=== PATIENT | female | born 1975 | race African-American/Black ===

== ENCOUNTER 2018-09-24 11:59 | Emergency (ER) | payer BC ==
[2018-09-24 12:11] VITALS: TEMP 98.5; BMI 27.1
--- NOTE | 2018-09-24 13:00 | PDOC ---
History of Present Illness - General Chief Complaint: Diarrhea Stated Complaint: DIARRHEA Time Seen by Provider: 09/24/18 12:56 - History of Present Illness Initial Comments: 09/24/18 12:59 43 yo F with h/o HTN who p/w nausea w/out vomiting, and watery stools. Patient with acute onset of nausea w/out vomiting this AM, and 2 loose non-bloody, non- mucoid stools, with absent BPR. No abdominal pain, identifiable triggers or alleviators. Denies recent travels or sick contacts. Patient denies KENT, vision change, palpitations, cough, wheezing, orthopena, PND , leg swelling/pain, F,C, CP, SOB, urinary complaints, hematuria, BPR, abdominal pain, constipation, lightheadedness, weakness, sensory changes. PMHx: as noted above Surgical: Liposuction ROS: as noted SHx: Denies Etoh, IVDA, tobacco use Allergies: NKDA Past History - Past Medical History Allergies/Adverse Reactions: Allergies Allergy/AdvReac Type Severity Reaction Status Date / Time No Known Allergies Allergy Verified 09/24/18 12:07 Home Medications: Ambulatory Orders Hydrochlorothiazide 25 mg PO DAILY #30 tablet 07/22/16 Amlodipine Besylate [Norvasc -] 10 mg PO DAILY 09/24/18 COPD: No HTN: Yes Thyroid Disease: Yes (Hypo (no meds)) - Immunization History Td Vaccination: No TDAP Vaccination: No Immunization Up to Date: Yes - Suicide/Smoking/Psychosocial Hx Smoking Status: No Smoking History: Never smoked Have you smoked in the past 12 months: No Number of Cigarettes Smoked Daily: 0 If you are a former smoker, when did you quit?: 10 years ago Hx Alcohol Use: No Drug/Substance Use Hx: No Substance Use Type: None Hx Substance Use Treatment: No Review of Systems - Review of Systems Comments:: 09/24/18 12:59 GENERAL/CONSTITUTIONAL: No fever or chills. No weakness. HEAD, EYES, EARS, NOSE AND THROAT: No change in vision. No ear pain or discharge. No sore throat. CARDIOVASCULAR: No chest pain or shortness of breath RESPIRATORY: No cough, wheezing, or hemoptysis. GASTROINTESTINAL: + nausea, diarrhea No vomiting, constipation. GENITOURINARY: No dysuria, frequency, or change in urination. MUSCULOSKELETAL: No joint or muscle swelling or pain. No neck or back pain. SKIN: No rash NEUROLOGIC: No headache, vertigo, loss of consciousness, or change in strength/ sensation. ENDOCRINE: No increased thirst. No abnormal weight change HEMATOLOGIC/LYMPHATIC: No anemia, easy bleeding, or history of blood clots. ALLERGIC/IMMUNOLOGIC: No hives or skin allergy. *Physical Exam - Vital Signs Last Vital Signs Temp Pulse Resp BP Pulse Ox 98.5 F 91 H 20 147/85 99 09/24/18 12:07 09/24/18 12:07 09/24/18 12:07 09/24/18 12:07 09/24/18 12:07 - Physical Exam Comments: 09/24/18 12:59 GENERAL: Awake, alert, and fully oriented, in no acute distress HEAD: No signs of trauma, normocephalic, atraumatic EYES: PERRLA, EOMI, sclera anicteric, conjunctiva clear ENT: + Dry mucous membranes. Auricles normal inspection, hearing grossly normal , nares patent, oropharynx clear without exudates. NECK: Normal ROM, supple, no lymphadenopathy, JVD, or masses LUNGS: No distress, speaks full sentences, clear to auscultation bilaterally HEART: Regular rate and rhythm, normal S1 and S2, no murmurs, rubs or gallops, peripheral pulses normal and equal bilaterally. ABDOMEN: Soft, nontender, normoactive bowel sounds. No guarding, no rebound. No masses EXTREMITIES : Normal inspection, Normal range of motion, no edema. No clubbing or cyanosis. NEUROLOGICAL: Cranial nerves II through XII grossly intact. Normal speech, normal gait, no focal sensorimotor deficits SKIN: Warm, Dry, normal turgor, no rashes or lesions noted Moderate Sedation - Procedure Monitoring Vital Signs: Procedure Monitoring Vital Signs Temperature 98.5 F 09/24/18 12:07 Pulse Rate 91 H 09/24/18 12:07 Respiratory Rate 20 09/24/18 12:07 Blood Pressure 147/85 09/24/18 12:07 O2 Sat by Pulse Oximetry (%) 99 09/24/18 12:07 ED Treatment Course - LABORATORY CBC & Chemistry Diagram: 09/24/18 13:20 09/24/18 13:20 Medical Decision Making - Medical Decision Making 09/24/18 13:20 43 yo F with h/o HTN who p/w nausea w/out vomiting, and watery stools. Vitals wnl, AF, A&Ox3. Physical exam unremarkable. Will evaluate for gastroenteritis, gastritis, pancreatitis, biliary dz., , colitis. Will provide IVF resuscitation, and anti-emetic control. Ed Course: NS Sandra Montoya 09/24/18 15:47 CK: 2441 CMP: Unremarkable Trop: Neg 09/24/18 16:53 UA: Neg Patient stable for d/c with return precautions. *DC/Admit/Observation/Transfer Diagnosis at time of Disposition: Nausea Diarrhea Qualifiers: Diarrhea type: unspecified type Qualified Code(s): R19.7 - Diarrhea, unspecified - Referrals Referrals: Marilee Smith MD [Primary Care Provider] - - Patient Instructions Printed Discharge Instructions: DI for Diarrhea and Traveler's Diarrhea -- Adult Additional Instructions: Please return to the emergency department with any new or worsening symptoms or concerns. Please follow up with your primary care physician within 72 hours. - Post Discharge Activity - Attestations Physician Attestion: 09/24/18 12:59 I attest to the information provided in this note.
--- NOTE | 2018-09-24 13:06 | PDOC ---
Attending Attestation - Resident Resident Name: WilfridoAnatoliy - ED Attending Attestation I have performed the following: I have examined & evaluated the patient, The case was reviewed & discussed with the resident, I agree w/resident's findings & plan, Exceptions are as noted - HPI HPI: 09/24/18 13:44 43y F hx of htn, presents with nausea wo vomiting and loose stools since this morning. Denies bpr, melena, abd pain, fever/chills, vomiting, sick contacts, recent travel, cp, back pain, lightheadedness. pt notes having swiss food last night that tasted normal that she shared with a coworker, but coworker is fine as far as she knows. PMD Dr. Smith. - Physicial Exam PE: 09/24/18 14:00 GENERAL: The patient is awake, alert, and fully oriented, Nontoxic - in no acute distress. HEAD: Normocephalic, atraumatic. EYES: extraocular movements intact, sclera anicteric, conjunctiva clear. ENT: Normal voice, slightly dry mucous membranes. NECK: Normal range of motion, supple LUNGS: Breath sounds equal, clear to auscultation bilaterally. No wheezes, no rhonchi, no rales. HEART: Regular rate and rhythm, normal S1 and S2 without murmur, rub or gallop. ABDOMEN: Soft, nontender, no rebound/guarding EXTREMITIES: Normal range of motion, no edema. No clubbing or cyanosis. No cords, erythema, or tenderness. NEUROLOGICAL: No facial assymetry, Normal speech, PSYCH: Normal mood, normal affect. SKIN: Warm, Dry, normal turgor, - Medical Decision Making 09/24/18 14:03 suspect possible enteritis vis viral diarrhea abd soft nontender without signs of focal peritonitis will ck labs fluids for hydration if neg anticipate dc with pmd fu and supportive care at home. Heart Score/ECG Review - ECG Impressions Comment:: 09/24/18 14:39 Twelve-lead EKG was performed and reviewed by me. There is normal sinus rhythm with a normal rate. Rate of 83 The axis is normal. The intervals are normal. There is abnormal R wave progression There are no ST or T wave abnormalities.
[2018-09-24] MEDS ORDERED: ONDANSETRON 4 MG/2 ML VIAL IVPB ONE (13:18)
[2018-09-24] MEDS ORDERED: SODIUM CHLORIDE 1,000 ML IV STA (13:18)
[2018-09-24] MEDS ORDERED: ONDANSETRON 4 MG/2 ML VIAL ONE (13:41)
[2018-09-24 13:58] LABS: BASO % 0.1 % (0-2.0); EOS % 0.8 % (0-4.5); HEMATOCRIT 41.9 % (32.4-45.2); HEMOGLOBIN 14.3 GM/dL (10.7-15.3); LYMPH % 8.9 % (8-40); MCH 29.6 pg (25.7-33.7); MCHC 34.2 g/dl (32.0-36.0); MEAN CELL VOLUME 86.6 fl (80-96); MEAN PLT VOLUME 8.9 fl (7.5-11.1); MONO % 4.4 % (3.8-10.2); NEUT % 85.8 % (42.8-82.8); PLATELET COUNT 250 K/MM3 (134-434); RBC 4.84 M/mm3 (3.60-5.2); RDW 15.9 % (11.6-15.6); WHITE BLOOD COUNT 7.7 K/mm3 (4.0-10.0)
[2018-09-24 15:27] LABS: ALBUMIN 3.5 g/dl (3.4-5.0); ALK PHOS 56 U/L (45-117); ANION GAP 7 MMOL/L (8-16); BILIRUBIN,TOTAL 0.4 mg/dL (0.2-1); BLOOD UREA NITROGEN 8 mg/dL (7-18); CALCIUM 8.5 mg/dL (8.5-10.1); CHLORIDE 104 mmol/L (98-107); CO2 27 mmol/L (21-32); CREATININE 0.7 mg/dL (0.55-1.3); GLUCOSE,RANDOM 81 mg/dL (74-106); LIPASE 172 U/L (73-393); POTASSIUM 4.3 mmol/L (3.5-5.1); SGOT/AST 57 U/L (15-37); SGPT/ALT 30 U/L (13-61); SODIUM 138 mmol/L (136-145); TOT PROT 7.3 g/dl (6.4-8.2)
[2018-09-24] MEDS ORDERED: SODIUM CHLORIDE 1,000 ML IV ONE (16:08)
[2018-09-24 16:51] LABS: URINE APPEARANCE CLEAR; URINE BILIRUBIN NEGATIVE (<2.0 mg/dL); URINE COLOR STRAW; URINE GLUCOSE (UA) NEGATIVE (NEGATIVE); URINE KETONE TRACE (NEGATIVE); URINE LEUK ESTERASE NEGATIVE (NEGATIVE); URINE NITRITE NEGATIVE (NEGATIVE); URINE PROTEIN NEGATIVE (NEGATIVE); URINE UROBILINOGEN NEGATIVE mg/dL (0.2-1.0)
[2018-09-24 17:13] VITALS: BP 138/89; PULSE 86
--- NOTE | 2018-09-25 11:11 | EKG ---
Test Reason : Blood Pressure : / mmHG Vent. Rate : 083 BPM Atrial Rate : 083 BPM P-R Int : 172 ms QRS Dur : 078 ms QT Int : 366 ms P-R-T Axes : 048 -22 010 degrees QTc Int : 430 ms NORMAL SINUS RHYTHM SEPTAL INFARCT , AGE UNDETERMINED ABNORMAL ECG WHEN COMPARED WITH ECG OF 22-JUL-2016 22:28, SEPTAL INFARCT IS NOW PRESENT Confirmed by MD DENZEL, VIJAYA ([id number]) on 09/25/2018 11:10:56 AM Referred By: Confirmed By:VIJAYA MAHONEY MD
== END 2018-09-24 18:06 | disposition home or self-care (01) ==
LOC: JER 11:59
PROC: 3E0337Z Introduction of Electrolytic and Water Balance Substance into Peripheral Vein, Percutaneous Approach (ICD-10-PCS; principal; 2018-09-24)
PROC: 3E033GC Introduction of Other Therapeutic Substance into Peripheral Vein, Percutaneous Approach (ICD-10-PCS; 2018-09-24)
DX: R11.0 Nausea (principal); R19.7 Diarrhea, unspecified; I10 Essential (primary) hypertension; E03.9 Hypothyroidism, unspecified
CPT/HCPCS: 36415; 80053; 81003; 82550; 82553; 83690; 84484; 84703; 85025; 93005; 93010; 99283-25; J7030